=== PATIENT | female | born 1975 | race Caucasian/White ===

== ENCOUNTER 2025-03-26 17:20 | Emergency (ER) | payer SELFPAY ==
[2025-03-26] MEDS ORDERED: Metoclopramide HCl 10 MG (2 mL) VIAL ONE (17:58)
[2025-03-26] MEDS ORDERED: Ketorolac Tromethamine 30 MG (1 mL) VIAL ONE (17:58)
[2025-03-26 18:27] LABS: #Basophils Less than 0.03 10x3/uL (0.0-0.2); #Eosinophils 0.08 10x3/uL (0.0-0.5); #Monocytes 0.24 10x3/uL (0.0-1.1); #Neutrophils 3.94 10x3/uL (1.5-8.4); %Basophils 0.2 % (0.0-2.0); %Eosinophils 1.4 % (0.0-6.0); %Lymphocytes 24.0 % (18.0-47.0); %Monocytes 4.3 % (0.0-10.0); %Neutrophils 69.9 % (40.0-75.0); Hematocrit 42.7 % (34.9-44.5); Hemoglobin 15.1 g/dL (12.0-15.5); Mean Corpuscular Hemoglobin 30.3 pg (27.0-33.0); Mean Corpuscular Volume 85.6 fL (81.6-98.3); Platelet Count 180 10x3/uL (150-450); Red Blood Cell (RBC) Count 4.99 10x6/uL (3.90-5.03); White Blood Cell (WBC) Count 5.63 10x3/uL (3.5-10.5)
[2025-03-26 18:39] LABS: ALT (SGPT) 17 U/L (Less than 34); AST (SGOT) 23 U/L (11-34); Albumin 4.4 g/dL (3.1-4.5); Alkaline Phosphatase 55 U/L (40-110); Anion Gap 13 mmol/L (10-20); BUN (Urea Nitrogen) 14 mg/dL (7.0-18.7); Bilirubin, Total 0.7 mg/dL (0.3-1.2); Calc. Creatinine Clearance 0 mL/min (70-130); Calcium 9.7 mg/dL (7.8-10.44); Carbon Dioxide 29 mmol/L (22-29); Chloride 103 mmol/L (98-107); Globulin 3.2 g/dL (2.4-3.5); Glucose 155 mg/dL (70-105); Potassium 3.8 mmol/L (3.5-5.1); Sodium 141 mmol/L (136-145)
== END 2025-03-26 19:05 | disposition home or self-care (01) ==
LOC: CSHERS 17:20
DX: G43.909 Migraine, unspecified, not intractable, without status migrainosus (principal)
CPT/HCPCS: 70450; 80053; 85025; 86140; 96365; 96375; J1885; J2765